=== PATIENT | male | born 1945 | race Caucasian/White ===

== ENCOUNTER 2020-05-07 15:20 | Emergency (ER) | payer MEDICARE ==
[~2020-05-07 15:20] MED LIST: Iopamidol 370 76% 100 ML VIAL ONE
[2020-05-07 15:43] LABS: #Basophils 0.1 thou/uL (0.0-0.2); #Eosinphils 0.1 thou/uL (0.0-0.7); #Lymphocytes 2.3 thou/uL (1.20-3.40); #Monocytes 0.7 thou/uL (0.11-0.59); #Neutrophils 3.9 thou/uL (1.40-6.50); %Basophils 0.8 % (0.0-1.0); %Eosinophils 1.7 % (0.0-10.0); %Lymphocytes 32.1 % (21.0-51.0); %Monocytes 9.3 % (0.0-10.0); %Neutrophils 56.2 % (42.0-75.0); Mean Corpuscular HGB CONC 32.5 g/dL (32.0-36.0); Mean Corpuscular Hemoglobin 31.2 pg (27.0-31.0); Mean Corpuscular Volume 95.8 fL (78.0-98.0); Mean Platelet Volume 8.6 fL (7.4-10.4); Platelet Count 165 thou/uL (130-400); Red Blood Cell (RBC) Count 4.81 mill/uL (4.70-6.10)
--- NOTE | 2020-05-07 15:50 | CT ---
CT head noncontrast HISTORY: Right arm and hand weakness. FINDINGS: There is no evidence of acute intracranial hemorrhage or infarct. 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 There is no mass effect or shift of midline structures. Mild diffuse cortical atrophy. IMPRESSION : Chronic-type findings. No acute intracranial abnormalities are demonstrated.
[2020-05-07 15:56] LABS: ALT (SGPT) 25 U/L (8-55); AST (SGOT) 23 U/L (5-34); Albumin 4.2 g/dL (3.4-4.8); Alkaline Phosphatase 61 U/L (40-110); Anion Gap 15 mmol/L (10-20); BUN (Urea Nitrogen) 19 mg/dL (8.4-25.7); Bilirubin, Total 0.5 mg/dL (0.2-1.2); CK (CPK) 168 U/L (30-200); Calc. Creatinine Clearance 0 mL/min (70-130); Carbon Dioxide 27 mmol/L (23-31); Chloride 104 mmol/L (98-107); Globulin 2.5 g/dL (2.4-3.5); Glucose 98 mg/dL (83-110); Protein, Total 6.7 g/dL (5.8-8.1); Sodium 142 mmol/L (136-145)
[2020-05-07] MEDS ORDERED: Aspirin Chewable 81 MG TAB ONE (16:36)
--- NOTE | 2020-05-07 16:56 | CT ---
CT arteriogram neck with IV contrast and 3-D imaging CT angiogram head with IV contrast and 3-D imaging HISTORY: Right arm and leg weakness. FINDINGS: There is good contrast opacification of the aortic arch with normal branching of the great vessels. Limited contrast opacification of the central arterial structures due to timing of bolus. There is calcification within the arterial structures. At the right carotid bifurcation, calcification is present with a short segment focus of approximatel y 50% stenosis at the proximal ICA. Mild calcification on the left without significant stenosis. [place] of [place] is intact. Good flow into each cerebral and cerebellar system. Prominent degenerative changes of the cervical spine with central canal and foraminal stenoses greate st at the C5-6 level. IMPRESSION : No acute intracranial abnormalities are demonstrated. Atherosclerosis. Mild stenosis of the proximal right cervical ICA. Prominent degenerative changes cervical spine with significant central canal and foraminal stenoses m ost pronounced at C5-6 level.
== END 2020-05-07 17:35 | disposition short-term general hospital (02) ==
LOC: BURERS 15:20
DX: G45.9 Transient cerebral ischemic attack, unspecified (principal); E78.5 Hyperlipidemia, unspecified; E78.00 Pure hypercholesterolemia, unspecified; F17.220 Nicotine dependence, chewing tobacco, uncomplicated; I10 Essential (primary) hypertension
CPT/HCPCS: 70450; 70496; 70498; 80053; 82550; 84484; 85025; 93005; Q9967

== ENCOUNTER 2025-02-07 12:27 | Emergency (ER) | payer MEDICARE ==
[2025-02-07 12:41] LABS: INR-International Normal Ratio 1.1; Prothrombin Time 14.0 sec (12.0-14.7)
[2025-02-07 12:42] LABS: PTT 34.5 sec (22.9-36.1)
[2025-02-07 12:43] LABS: Hematocrit 38.1 % (42.0-52.0); Hemoglobin 13.6 g/dL (14.0-18.0); MDiff Complete? YES; Mean Corpuscular Hemoglobin 30.7 pg (27.0-31.0); Mean Corpuscular Volume 85.6 fl (78.0-98.0); Platelet Count 267 10x3/uL (130-400); Red Blood Cell (RBC) Count 4.45 mill/uL (4.70-6.10); White Blood Cell (WBC) Count 7.8 10x3/uL (4.8-10.8)
[2025-02-07 12:51] LABS: ALT (SGPT) 20 U/L (Less than 45); AST (SGOT) 22 U/L (11-34); Albumin 3.7 g/dL (3.1-4.5); Alkaline Phosphatase 88 U/L (40-110); Anion Gap 16 mmol/L (10-20); BUN (Urea Nitrogen) 14 mg/dL (8.4-25.7); Bilirubin, Total 0.3 mg/dL (0.3-1.2); Calc. Creatinine Clearance 0 mL/min (70-130); Calcium 9.3 mg/dL (7.8-10.44); Carbon Dioxide 28 mmol/L (23-31); Chloride 102 mmol/L (98-107); Globulin 3.0 g/dL (2.4-3.5); Glucose 104 mg/dL (83-110); Potassium 3.6 mmol/L (3.5-5.1); Sodium 142 mmol/L (136-145)
== END 2025-02-07 13:45 | disposition short-term general hospital (02) ==
LOC: BURERS 12:27
DX: I63.9 Cerebral infarction, unspecified (principal); R29.705 NIHSS score 5
CPT/HCPCS: 70450; 80053; 85025; 85610; 85730; 93005; 94760

== ENCOUNTER 2025-03-22 10:49 | Emergency (ER) | payer OTHER ==
[2025-03-22 11:47] LABS: Hematocrit 29.6 % (42.0-52.0); Hemoglobin 10.1 g/dL (14.0-18.0); Mean Corpuscular Hemoglobin 33.3 pg (27.0-31.0); Mean Corpuscular Volume 98.1 fl (78.0-98.0); Platelet Count 305 10x3/uL (130-400); Red Blood Cell (RBC) Count 3.02 mill/uL (4.70-6.10); White Blood Cell (WBC) Count 6.9 10x3/uL (4.8-10.8)
[2025-03-22 11:54] LABS: INR-International Normal Ratio 1.1; Prothrombin Time 14.4 sec (12.0-14.7)
[2025-03-22 11:55] LABS: PTT 35.4 sec (22.9-36.1)
[2025-03-22 12:14] LABS: ALT (SGPT) 10 U/L (Less than 45); AST (SGOT) 19 U/L (11-34); Albumin 3.8 g/dL (3.1-4.5); Alkaline Phosphatase 68 U/L (40-110); Anion Gap 16 mmol/L (10-20); BUN (Urea Nitrogen) 21 mg/dL (8.4-25.7); Bilirubin, Total 0.4 mg/dL (0.3-1.2); Calc. Creatinine Clearance 0 mL/min (70-130); Calcium 9.2 mg/dL (7.8-10.44); Carbon Dioxide 24 mmol/L (23-31); Chloride 104 mmol/L (98-107); Globulin 2.6 g/dL (2.4-3.5); Glucose 120 mg/dL (83-110); Potassium 4.1 mmol/L (3.5-5.1); Sodium 140 mmol/L (136-145)
[2025-03-22 12:39] LABS: MDiff Complete? YES
[2025-03-22] MEDS ORDERED: Ketorolac Tromethamine 30 MG (1 mL) VIAL ONE (13:31)
[2025-03-22] MEDS ORDERED: Iopamidol 370 76% 100 ML VIAL ONE (15:24)
== END 2025-03-22 14:08 | disposition home or self-care (01) ==
LOC: BURERS 10:49
DX: S22.42XA Multiple fractures of ribs, left side, initial encounter for closed fracture (principal); S20.222A Contusion of left back wall of thorax, initial encounter; I10 Essential (primary) hypertension; I48.91 Unspecified atrial fibrillation; E78.5 Hyperlipidemia, unspecified; W18.30XA Fall on same level, unspecified, initial encounter; Z79.82 Long term (current) use of aspirin; Z79.899 Other long term (current) drug therapy
CPT/HCPCS: 74177; 80053; 85025; 85610; 85730; 96374; J1885; J3010; Q9967